=== PATIENT | female | born 1985 | race Caucasian/White ===

== ENCOUNTER 2020-01-26 16:21 | Outpatient (CLI) | payer OTHER, SELFPAY ==
--- NOTE | ~2020-01-26 | US_ITS ---
EXAMINATION: US pelvic complete w TV DATE: 01/26/2020 17:15 INDICATION: Lower pelvic pain Comparison:Ultrasound dated 05/11/2018 TECHNIQUE: Multiple transabdominal and endovaginal sonographic images of the pelvis performed. FINDINGS: The uterus measures 3.5 x 2.1 x 3.4 cm. The endometrial complex measures 4 mm. The ovaries are not visualized. There is no free fluid in the pelvis. There are no abnormal masses seen on either side. IMPRESSION: 1. Unremarkable pelvic ultrasound. Ovaries not visualized. Reviewed, dictated and finalized at location A.
--- NOTE | ~2020-01-26 | XR_ITS ---
XR thoracic spine 3V 01/26/2020 17:17 Indication: Chronic back pain Procedure: 3 views thoracic spine Comparison: 01/26/2020 Findings: No fracture or traumatic malalignment. Pedicles intact. No paraspinal soft tissue abnormali ty. No significant loss of vertebral body height or disc narrowing. Impression: 1: No significant abnormality of the thoracic spine. Reviewed, dictated and finalized at location A. Impression: 1: No significant abnormality of the thoracic spine.
--- NOTE | ~2020-01-26 | XR_ITS ---
XR lumbar spine 2-3V 01/26/2020 17:17 Indication: Back pain Procedure: 4 views lumbar spine Comparison: 08/12/2015 Findings: Vertebral body heights are maintained. There is disc narrowing at L5-S1. There are facet de generative changes at L5-S1. No fracture, subluxation or spondylolisthesis. There are cholecystectomy clips. Impression: 1: Mild lumbar spondylosis. Reviewed, dictated and finalized at location A. Impression: 1: Mild lumbar spondylosis.
== END 2020-01-26 16:22 | disposition home or self-care (01) ==
PROVIDERS: PCP Physician Assistant; Visit Provider Physician Assistant
DX: M54.9 Dorsalgia, unspecified (principal); M47.816 Spondylosis without myelopathy or radiculopathy, lumbar region
CPT/HCPCS: 72072; 72100; 76830; 76856

== ENCOUNTER 2020-02-10 15:26 | Outpatient (CLI) | payer OTHER, SELFPAY ==
--- NOTE | ~2020-02-10 | XR_ITS ---
EXAMINATION: XR hip BI wo pelvis EXAM DATE: 02/10/2020 16:14 INDICATION: Inguinal pain shooting down legs bilaterally. Left-sided spurs. No known recent injury. TECHNIQUE: Each hip imaged independently (separate right and also left hip) 'frog leg' and frontal p rojections for interpretation. Frontal projection pelvis. There is no prior study for comparison. FINDINGS: No radiographic evidence of hip avascular necrosis. There is minimal bilateral hip primary osteoarthritis. There are no acute fractures or dislocations identified. There is no subcutaneous g as. The soft tissue is unremarkable. There are no radiopaque foreign bodies. IMPRESSION: Minimal bilateral hip osteoarthritis. Reviewed, dictated and finalized at location A.
--- NOTE | ~2020-02-10 | US_ITS ---
EXAMINATION: US venous doppler LE EXAM DATE: 02/10/2020 16:15 INDICATION: Pain in both legs. TECHNIQUE: Multiple grayscale, color flow and Doppler images of the lower extremity deep venous syste ms bilaterally were obtained and reviewed. There is no prior study for comparison. FINDINGS: Right side: The right common femoral, femoral and profunda veins demonstrate normal color flow, respi ratory variation, augmentation and compressibility. Compressibility, color flow confirmed within the right popliteal, posterior tibial, peroneal, and greater saphenous veins. Left side: The left common femoral, femoral and profunda veins demonstrate normal color flow, respira tory variation, augmentation and compressibility. Compressibility, color flow confirmed within the l eft popliteal, posterior tibial, peroneal, and greater saphenous veins. IMPRESSION: 1. No lower extremity deep venous thrombosis bilaterally. Reviewed, dictated and finalized at location A.
== END 2020-02-10 15:27 | disposition home or self-care (01) ==
PROVIDERS: PCP Physician Assistant; Visit Provider Physician Assistant
DX: M79.604 Pain in right leg (principal); M79.605 Pain in left leg
CPT/HCPCS: 73521; 93970

== ENCOUNTER 2020-02-16 14:18 | Outpatient (CLI) | payer OTHER, SELFPAY ==
--- NOTE | ~2020-02-16 | US_ITS ---
EXAMINATION: US arterial ankle brachial ind DATE: 02/16/2020 15:05 INDICATION: Lower limb pain TECHNIQUE: Segmental pressures and plethysmographic and Doppler waveforms of the brachial and lower e xtremity arteries were obtained. COMPARISON: None. FINDINGS: Right and left brachial artery pressures of 125 mm Hg and 103 mm Hg, respectively, are concordant (no rmal difference <= 30 mmHg). The right ankle-brachial index (ALLEN) is 1.15 (normal >= 0.9-1.0). The right great toe-brachial index (TBI) is 0.69 (normal >= 0.65). Arterial Doppler waveforms are triphasic throughout the right posteri or tibial and dorsalis pedis arteries. The left ALLEN is 1.10. The left TBI is 0.87. Arterial Doppler waveforms are triphasic at both the left posterior tibial and dorsalis pedis arteries. IMPRESSION: 1. No significant arterial occlusive disease to either lower limb with normal bilateral ABIs and TBIs . Reviewed, dictated and finalized at location A. IMPRESSION: 1. No significant arterial occlusive disease to either lower limb with normal b ilateral ABIs and TBIs.
== END 2020-02-16 14:19 | disposition home or self-care (01) ==
PROVIDERS: PCP Physician Assistant; Visit Provider Physician Assistant
DX: M79.605 Pain in left leg (principal)
CPT/HCPCS: 93922

== ENCOUNTER → 2020-10-26 08:33 | Outpatient (CLI) | payer OTHER, SELFPAY ==
[2020-10-26 18:21] LABS: SARS-CoV-2 RNA PCR Negative
== END ==
PROVIDERS: PCP Physician Assistant; Visit Provider Physician Assistant
DX: R05 Cough (principal); Z20.822 Contact with and (suspected) exposure to COVID-19
CPT/HCPCS: C9803; U0003; U0005

== ENCOUNTER 2021-09-12 08:14 | Outpatient (CLI) | payer OTHER, SELFPAY ==
--- NOTE | 2021-09-18 12:45 | WPDHOMESLEEP ---
Sleep Study - Home Unattended Date of Study: 09/12/21 Ordering Provider: Debbie Alves, PAGabino Interpreting Provider: Mariana Hunter, DO Home Sleep Study Type: Apnea Link Air Height: 1.68 m Weight: 145.15 kg Body Mass Index: 51.6 Neck Circumference (inches): 17 Edwards: 7 Reason for Sleep Study Unrefreshing sleep, daytime hypersomnia, multiple nighttime awakenings Sleep History The patient is a 35-year-old female with anxiety, hypothyroidism, depression and PVCs that had a home sleep test ordered by her primary care for evaluation of LESLEY. 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 The patient states that she is had restless sleep, multiple nighttime awakenings and unrefreshing sleep for the past few years. The patient rarely awakens from sleep short of breath. She frequently awakens at night with heartburn, belching or cough. She constantly snores loud enough that others complain. She constantly has trouble sleeping when she has a cold. She occasionally wakes up gasping for air throughout the night. She constantly has breathing problems at night observed by herself or others. She constantly sweats excessively at night. She occasionally has heart palpitations or irregular heartbeats during the night. She occasionally falls asleep during the day but never while driving. She occasionally has trouble at work due to sleepiness. She denies sleep paralysis, cataplexy and hypnagogic / hypnopompic hallucinations. She occasionally has nightmares. She occasionally remembers her dreams. She constantly has thoughts racing through her mind. She occasionally feels sad or depressed. She constantly has anxiety. She rarely has muscular tension. She occasionally notices parts of her body jerk. She occasionally kicks during the night. She occasionally has crawling and aching feelings in her legs. She occasionally has leg pain during the night. She constantly grinds her teeth during sleep and frequently awakens with morning jaw pain. She is frequently bothered by pain during the day but rarely awakened by pain during the night. She occasionally wakes up feeling stiff in the morning with sore or achy muscles. She frequently wakes up with pain in the neck, spine or joints. She goes to bed between 9 and 10:00 p.m. on weekdays and between 10 and 11:00 p.m. on the weekends. It takes her an hour to fall asleep. She wakes up 2-4 times throughout the night. when she awakens, she will use the restroom, lay there and try to fall back asleep or watch television. She wakes up at 6:00 a.m. on weekdays and 8:00 a.m. on the weekends. She typically gets 6-8 hours of sleep per night. She will stay in bed for 30 minutes after waking up in the morning. She currently lives with her child and parent. She does not consume any caffeinated beverages within 2 hours of bedtime. She does not engage in physical exercise before bedtime. she will watch television before falling asleep. She will take naps in afternoon or the evening but had not refreshing. She quit smoking several months ago. She drinks 2 caffeinated beverages per day. She will drink up to 1 alcoholic beverage per month. She denies recreational drug use. [facility] Past Medical History Medical History Anxiety Hypothyroidism (acquired) Obesity Social History Social History Smoking status: Never smoker Gender identity (if verbalized by the patient): Female Medications Home Medications Medication Instructions Recorded Confirmed Type albuterol sulfate [ProAir HFA] 1 inh INHALATION QID 05/13/19 05/13/19 History alprazolam [Xanax] 0.25 mg PO BID 05/13/19 05/13/19 History citalopram [Celexa] 40 mg 05/13/19 History levothyroxine 100 mcg PO DAILY 05/13/19 05/13/19 History Sleep Procedure This test was performed using 4 channel monitoring including respiratory ef
[2021-09-18 12:52] VITALS: BMI 51.6
--- NOTE | 2022-11-05 13:08 | SLEEP ---
NO ANSWER x3
== END 2021-09-13 11:18 | disposition home or self-care (01) ==
PROVIDERS: PCP Physician Assistant; Visit Provider Physician Assistant
DX: G47.33 Obstructive sleep apnea (adult) (pediatric) (principal)
CPT/HCPCS: 95806

== ENCOUNTER 2022-12-08 17:14 | Emergency (ER) | payer OTHER, SELFPAY ==
--- NOTE | ~2022-12-08 | US_ITS ---
EXAMINATION: US pelvic complete w TV DATE: 12/08/2022 22:50 INDICATION: Right lower pelvic pain. Comparison:Ultrasound dated 01/25/ TECHNIQUE: Multiple transabdominal and endovaginal sonographic images of the pelvis performed. FINDINGS: The uterus measures 5.3 x 2.6 x 3 cm. The endometrial complex measures 4.7 mm. There are na bothian cysts. The ovaries are not visualized. There is trace free fluid in the pelvis. There are no abnormal masses seen on either side. IMPRESSION: 1. Unremarkable pelvic ultrasound Reviewed, dictated and finalized at location A.
--- NOTE | ~2022-12-08 | CT_ITS ---
EXAMINATION: CT abdomen pelvis w con INDICATION: Right-sided abdominal pain TECHNIQUE: Computed tomographic images of the abdomen and pelvis were obtained after the administrati on of 100 cc of Omnipaque 350 intravenous contrast. The dose-length product (DLP) was 1694.59 mGy-cm. Automated exposure control and iterative reconstruction technique were employed. COMPARISON: 05/06/2018 FINDINGS: Minimal dependent atelectasis is present in the lung bases. The heart size is normal. The g allbladder is surgically absent. The liver, spleen, pancreas, and adrenal glands are normal. The kidn eys are unremarkable. No pathologically enlarged abdominal or pelvic lymph nodes are identified. No f ree intraperitoneal gas or evidence of bowel obstruction. There is severe lumbar spondylosis at L5-S1 . IMPRESSION: 1. No CT correlate for the patient's symptoms. Reviewed, dictated and finalized at location F.
[2022-12-08 17:32] VITALS: BP 138/77; PULSE 87; RESP 18; TEMP 36.6; O2SAT 97
[2022-12-08 19:01] LABS: Basophils Percent Auto 0.5 % (0.2-1.2); Eosinophils Absolute Auto 0.2 K/mm3 (0-0.3); Eosinophils Percent Auto 2.5 % (0-4.4); Hematocrit 38.8 % (37.0-47.0); Hemoglobin 12.2 g/dL (12.0-15.0); Immature Granulocyte Absolute 0.06 K/mm3 (0.00-0.031); Immature Granulocyte Percent A 0.7 % (0-0.5); Lymphocytes Percent Auto 26.5 % (18.3-44.2); Mean Corpuscular HGB Conc 31.4 g/dl (32-36); Mean Corpuscular Hemoglobin 27.4 pg (26-34); Mean Platelet Volume 9.9 fl (7.4-10.4); Monocytes Absolute Auto 0.6 K/mm3 (0.1-0.6); Monocytes Percent Auto 6.8 % (2.6-8.5); Neutrophils Absolute Auto 5.5 K/mm3 (1.3-6.7); Platelet Count Result 213 k/mm3 (150-375); Red Blood Count 4.46 M/mm3 (4.2-5.4); Red Cell Distribution Width 13.6 % (11.5-14.5); White Blood Count 8.7 K/mm3 (4.5-10.0)
[2022-12-08 19:15] LABS: Appearance Urine Cloudy (Clear); Bacteria Urine 4+ /hpf; Bilirubin Urine Negative (Negative); Blood Urine Negative (Negative); Color Urine Yellow (Yellow); Glucose Urine UA Negative (Negative); Hyaline Casts Urine Present /lpf; Ketones Urine Negative (Negative); Leukocyte Esterase Ur 2+ LEU/UL (Negative); Nitrate Urine Negative (Negative); Non Pathogenic Casts 0-2; Protein Urine Negative (Negative); Specific Grav Ur 1.023 (1.001-1.035); Squamous Epithelial Cell Urine Moderate /hpf (Few); WBC Urine >100 /hpf; pH Urine 5.5 (5.0-9.0)
[2022-12-08 19:16] LABS: Add Urine Microscopic? YES
[2022-12-08 19:46] VITALS: BP 153/77; PULSE 85; RESP 15; O2SAT 100
--- NOTE | 2022-12-08 20:11 | ED.ABDPAIN ---
HPI - Abdominal Pain General Chief Complaint: Abdominal Pain Stated Complaint: abdominal pain Time Seen by Provider: 12/08/22 19:39 Source: patient Mode of arrival: ambulatory Limitations: no limitations History of Present Illness HPI narrative: Patient is a 36-year-old female who presents to the ED with report of right-sided abdominal pain. Patient reports the pain began on and has been intermittent since then, worse with ambulating and movement, but occasionally occurring while laying still. Pain occasionally radiates to her right upper abdomen and around to her right lower back. She has taken Tylenol and ibuprofen for the pain without much relief. Pain became worse tonight, which prompted her presentation. She did have diarrhea yesterday, but denied rectal bleeding or melena. She denies any nausea, vomiting, fevers, dysuria, hematuria. Denies history of kidney stones. She has had previous cholecystectomy. She does report history of PCOS with ovarian cyst. Denies abnormal vaginal bleeding. Related Data Home Medications Medication Instructions Recorded Confirmed albuterol sulfate 90 mcg/actuation 1 inh inhalation QID PRN Shortness 05/13/19 11/01/22 aerosol inhaler (ProAir HFA) Of Breath citalopram 40 mg tablet (Celexa) 40 mg PO DAILY 05/13/19 11/01/22 alprazolam 1 mg tablet 1 mg PO DAILY PRN Anxiety 10/16/22 11/01/22 buspirone 5 mg tablet 5 mg PO TID 10/16/22 11/01/22 cetirizine 10 mg tablet (Zyrtec) 10 mg PO DAILY 10/16/22 11/01/22 ergocalciferol (vitamin D2) 1,250 1 unit PO WEEKLY 10/16/22 11/01/22 mcg (50,000 unit) capsule flaxseed oil 1,000 mg capsule 3,000 mg PO DAILY 10/16/22 11/01/22 levothyroxine 125 mcg tablet 0.125 mcg PO DAILY 10/16/22 11/01/22 mecobalamin (vitamin B12) 1,000 1,000 mcg PO DAILY 10/16/22 11/01/22 mcg chewable tablet omeprazole 40 mg capsule,delayed 40 mg PO DAILY 10/16/22 11/01/22 release Allergies Allergy/AdvReac Type Severity Reaction Status Date / Time morphine Allergy Severe Hives / Verified 12/08/22 19:47 Red Face Sulfa (Sulfonamide Allergy Difficulty Verified 12/08/22 19:47 Antibiotics) Breathing Review of Systems Review of Systems: CONSTITUTIONAL: Denies fever, chills, or sweats. CARDIOVASCULAR: Denies chest pain. RESPIRATORY: Denies dyspnea. GASTROINTESTINAL: See HPI. GENITOURINARY: Denies dysuria or hematuria. SKIN: Denies rash or itching. MUSCULOSKELETAL: See HPI. All systems reviewed & are unremarkable except as noted in HPI and below PMFSH Past Medical History Medical History Anxiety Hypothyroidism (acquired) Obesity PCOS (polycystic ovarian syndrome) Surgical History Surgical History History of cholecystectomy Social History Social History Smoking packs per day: 0.5 Smoking cigarettes per day: 10.0 Years smoked: 10 Smoking pack-years: 5.00 Smoking status: Former smoker Tobacco type: cigarettes and e-cigarettes/vaping Additional smoking assessment comments: SMOKED OFF AND ON FOR 10 YEARS, QUIT LAST YEAR, CIGARETTES AND VAPE Alcohol intake: never Substance use: never Substance use type: does not use Living arrangements: with family Gender identity (if verbalized by the patient): Female Spiritual care concerns: No Exam Narrative: GENERAL: Well appearing, morbidly obese, non-toxic, in no acute distress. HEAD: Normocephalic, atraumatic. NECK: Supple. No adenopathy, no masses. RESPIRATORY: Airway patent, respirations nonlabored. Clear to auscultation bilaterally, no rales, rhonchi, wheezing. CARDIOVASCULAR: Regular rate and rhythm without murmurs, rubs, or gallops. Radial pulses 2+ and equal bilaterally. ABDOMINAL: Soft, tenderness to palpation in right lower abdomen/right pelvic region and suprapubic region. No rebound, nond
[2022-12-08] MEDS: ONDANSETRON INJ 4 MG/2 ML VIAL IV PUSH (20:35)
[2022-12-08] MEDS: ACETAMINOPHEN 500 MG TABLET 1000 MG PO (20:35)
[2022-12-08] MEDS: SODIUM CHLORIDE 0.9% IV 1,000 ML 999 ML IV CONT (20:35)
[2022-12-08 20:39] LABS: Alanine Aminotransferase 31 U/L (6-35); Albumin Level 3.8 g/dL (3.5-5.1); Alkaline Phosphatase 62 U/L (38-126); Anion Gap 5 mmol/L (8-16); Aspartate Amino Transferase 36 U/L (14-36); Bilirubin,Total 0.6 mg/dL (0.2-1.3); Blood Urea Nitrogen 12 mg/dL (7-17); Calcium 8.5 mg/dL (8.4-10.2); Carbon Dioxide 30 mmol/L (22-30); Chloride 104 mmol/L (98-107); Estimated Glomerular Filt Rate > 60; Glucose 122 mg/dL (65-110); Lipase 117 U/L (23-300); Sodium 139 mmol/L (137-145)
[2022-12-08] MEDS: fentaNYL CITRATE INJ (*CRX) 100 MCG/2 ML VIAL 25 MCG IV PUSH (20:41)
[2022-12-08] MEDS: fentaNYL CITRATE INJ (*CRX) 100 MCG/2 ML VIAL 50 MCG IV PUSH (22:50)
[2022-12-08 22:53] VITALS: BP 124/54; PULSE 71; RESP 14; O2SAT 99
== END 2022-12-09 00:53 | disposition home or self-care (01) ==
PROVIDERS: Emergency Provider Physician Assistant; PCP Physician Assistant
DX: N39.0 Urinary tract infection, site not specified (principal); R10.9 Unspecified abdominal pain; E03.9 Hypothyroidism, unspecified; E28.2 Polycystic ovarian syndrome; F41.9 Anxiety disorder, unspecified; Z87.891 Personal history of nicotine dependence; Z79.51 Long term (current) use of inhaled steroids
CPT/HCPCS: 36415; 74177; 76830; 76856; 80053; 81001; 83690; 85025; 87086; 87088; 96361; 96365; 96375; 99284; A9270; J0696; J2405; J3010; J7030; Q9967

== ENCOUNTER 2024-10-06 15:50 | Outpatient (CLI) | payer OTHER, SELFPAY ==
--- NOTE | ~2024-10-06 | XR_ITS ---
Right Shoulder Technique: AP and axillary views were obtained. Clinical History: Pain Findings: No fracture or dislocation is seen. Osseous alignment is anatomic. The glenohumeral and acr omioclavicular joint spaces are preserved. Soft tissues are unremarkable. Impression: Unremarkable right shoulder radiographs. Reviewed, dictated and finalized at [facility]. Impression: Unremarkable right shoulder radiographs.
--- NOTE | ~2024-10-06 | XR_ITS ---
Right scapula Technique: AP and lateral views were obtained. Clinical History: Pain Findings: No fracture or dislocation is seen. Osseous alignment is anatomic. The glenohumeral and acr omioclavicular joint spaces are preserved. Soft tissues are unremarkable. Impression: Unremarkable right scapular radiographs. Reviewed, dictated and finalized at [facility]. Impression: Unremarkable right scapular radiographs.
--- NOTE | ~2024-10-06 | XR_ITS ---
Cervical Spine: AP, lateral, open-mouth views Clinical History: Pain Findings: The normal lordotic curve is maintained. The vertebral bodies and posterior elements appea r intact. The intervertebral disc spaces are well maintained. Pre-vertebral soft tissues are unremar kable. Impression: No significant abnormality is seen. Reviewed, dictated and finalized at [facility]. Impression: No significant abnormality is seen.
== END 2024-10-06 15:51 | disposition home or self-care (01) ==
LOC: MICIMG 15:51
PROVIDERS: PCP Physician Assistant; Visit Provider Physician Assistant
DX: M25.511 Pain in right shoulder (principal); M54.12 Radiculopathy, cervical region
CPT/HCPCS: 72040; 73010; 73030